=== PATIENT | male | born 2000 | race Caucasian/White ===

== ENCOUNTER 2022-11-22 08:28 | Emergency (ER) | payer SELFPAY ==
[2022-11-22 08:40] VITALS: BP 116/73; PULSE 65; RESP 18; TEMP 36.2; O2SAT 100; BMI 22.5
--- NOTE | 2022-11-22 09:18 | ED.GENADULT ---
HPI - General Adult General Chief complaint: Anxiety Stated complaint: Panic attack Time Seen by Provider: 11/22/22 08:58 History of Present Illness HPI narrative: 22-year-old young man presenting to the emergency department via EMS with complaint of chest pain. 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 This progressed to hyperventilating final Accu is about to pass out. A noted numbness and cramping in numerous locations. He eventually got out of the truck to get some fresh air. EMS noted carpal pedal spasms. Still has a sense of tightness in his low mid chest and upper abdomen. Otherwise better. As we are talking though he suddenly gets an apparent pain in his right sabianist area which he says he will probably be dealing with all day. Did have a ?migraine? last night. Underlying history of some depression anxiety treated for couple of months with probably an SSRI which did help. Unfortunately started to have regular headaches ?migraines?. Took acetaminophen last night for this headache and improved. Would anticipate doing the same today. Does not endorse any particular new stressors. Notes does not celebrate the holidays. Is far from family who live in [facility]. Good relationship there. Dad apparently had some sort of cardiac issue. Then notes that dad may have had a heart attack or stroke when he was 13; details quite unclear. [place] does smoke though has quit before and quit again as of yesterday. Related Data Home Medications Medication Instructions Recorded Confirmed No Known Home Medications 11/22/22 11/22/22 Allergies Allergy/AdvReac Type Severity Reaction Status Date / Time No Known Drug Allergies Allergy Verified 11/22/22 08:39 Review of Systems Status of ROS: Reports: 10 or more systems reviewed and unremarkable except as noted in History and below [facility] Social History Smoking Status: Former smoker service: No Exam Narrative: Exam Narrative: Pleasant. Pretty calm. Well-built/muscled. Tall. In work attire. Mud from work already on clothes and boots. Cranial nerves 2-12 are intact. Moving all extremities without difficulty. Well perfused. Tattoo at the left forearm. Oropharynx a little hyperemic with prominent tonsils. Lungs are clear. Heart is in a regular rhythm and normal rate. No pain to palpation of the chest wall until around the xiphoid area and the mid upper abdominal musculature. Abdomen is flat otherwise soft and nontender. Extremities are without edema. Const: Vital Signs, click to edit/add: Vital Signs - 24 hr 11/22/22 08:40 Temperature 97.2 F L Pulse Rate [Right Pulse Oximeter] 65 Respiratory Rate 18 Blood Pressure [Ri ght Upper Arm] 116/73 Pulse Oximetry 100 Oxygen Delivery Me thod Room Air Documenting provider has reviewed patient's vital signs: yes Course Vital Signs Vital signs: Initial Vital Signs Temperature 97.2 F L 11/22/22 08:40 Temperature Source Temporal Artery Scan 11/22/22 08:40 Pulse Rate 65 11/22/22 08:40 Respiratory Rate 18 11/22/22 08:40 Blood Pressure 116/73 11/22/22 08:40 Blood Pressure Mean 87 11/22/22 08:40 Blood Pressure Position Sitting 11/22/22 08:40 Pulse Oximetry 100 11/22/22 08:40 Oxygen Delivery Method 11/22/22 08:40 Vital Signs Temperature 97.2 F L 11/22/22 08:40 Pulse Rate 65 11/22/22 08:40 Respiratory Rate 18 11/22/22 08:40 Blood Pressure 116/73 11/22/22 08:40 Pulse Oximetry 100 11/22/22 08:40 Oxygen Delivery Method 11/22/22 08:40 Temperature 97.2 F L 11/22/22 08:40 Pulse Rate 65 11/22/22 08:40 Respiratory Rate 18 11/22/22 08:40 Blood Pressure 116/73 11/22/22 08:40 Pulse Oximetry 100 11/22/22 08:40 Oxygen Delivery Method 11/22/22 08:40 Medical Decision Making MDM Narrative Medical decision making narrative: I did offer treatment in the ER for this potentially evolving headache and he declines at this time. Did not otherwise require any interventions. Labs are unremarkable. Chest x-ray looked normal by my read. No infiltrate. No pneumothorax. Normal cardiac silhouette. I did review 12 lead tracing from EMS some baseline irritability heart rate in a normal sinus at 81. Our EKG here reviewed by me shows sinus bradycardia 52. No apparent ischemic changes. No delta waves. Lab Data Labs: Lab Results 12/11/22/22 11/22/22 Range/Units 09:17 09:25 09:25 Hgb 15.0 (13.5-17.5) gm/dL D-Dimer Quant (PE/DVT) (0.00-0.50) ug/ml Sodium 141 (135-149) mmol/L Potassium 3.6 (3.6-5.1) mmol/L Chloride 110 (96-114) mmol/L Carbon Dioxide 24 (20-32) mmol/L BUN 10 (5-24) mg/dL Creatinine 0.8 (0.5-1.5) mg/dL Estimated Creat Clear 161.24 Estimated GFR 128 ml/min Glucose 99 (60-115) mg/dL Calcium 9.3 (8.4-10.6) mg/dL Troponin I (0.01-0.04) ng/mL C-Reactive Protein < 0.5 L (0.5-1.0) mg/dL NT-Pro-B Natriuret Pep pg/mL POC Troponin I 0.00 L (0.01-0.04) ng/ml 11/22/22 11/22/22 Range/Units 09:25 09:25 Hgb (13.5-17.5) gm/dL D-Dimer Quant (PE/DVT) < 0.27 (0.00-0.50) ug/ml Sodium (135-149) mmol/L Potassium (3.6-5.1) mmol/L Chloride (96-114) mmol/L Carbon Dioxide (20-32) mmol/L BUN (5-24) mg/dL Creatinine (0.5-1.5) mg/dL Estimated Creat Clear Estimated GFR ml/min Glucose (60-115) mg/dL Calcium (8.4-10.6) mg/dL Troponin I < 0.01 L (0.01-0.04) ng/mL C-Reactive Protein (0.5-1.0) mg/dL NT-Pro-B Natriuret Pep 38 pg/mL POC Troponin I (0.01-0.04) ng/ml Discharge Plan Discharge Clinical Impression: Headache, Panic attack Patient Disposition: Home w/ Parent or Adult Condition: Improved Additional Instructions: Congratulations again on quitting smoking. I suppose this could add to stress a little bit in the short term. Otherwise do try to stay well-hydrated, get quality and regular sleep, get a little heart pumping exercise in daily...all of these help decrease propensity to headaches, and can control levels of stress. Prescriptions: No Action No Known Home Medications Follow Up/Referrals: Provider,Not a Local [Primary Care Provider] - Stand Alone Forms: [employer] Info Instructions
--- NOTE | 2022-11-22 09:25 | CRLHL7_ITS ---
For Patients: As a result of the Century Cures Act, medical imaging exams and procedure reports are released immediately into your electronic medical record. You may view this report before your referring provider. If you have questions, please contact your health care provider. INDICATION: Chest pain. TECHNIQUE: Chest 1 view. COMPARISON: None FINDINGS: Cardiovascular and mediastinum: Heart size and vasculature are normal in caliber and appearance. Mediastinum is within normal limits. Lungs and pleural space: Lungs are clear. No sign of infiltrate or mass. No sign of pleural effusion. No pneumothorax. Bones and soft tissues: No significant findings. IMPRESSION: Unremarkable chest. Dictated by Mansoor Wilson MD @ 11/22/2022 10:07:58 AM (Electronically Signed)
[2022-11-22 09:49] LABS: Chloride* 110 mmol/L (96-114); Sodium* 141 mmol/L (135-149)
[2022-11-22 09:50] LABS: Potassium* 3.6 mmol/L (3.6-5.1)
[2022-11-22 09:52] LABS: Creatinine* 0.8 mg/dL (0.5-1.5); Est. Creatinine Clearance* 161.24; Estimated Glomerular Filt Rate 128 ml/min
[2022-11-22 09:53] LABS: Blood Urea Nitrogen* 10 mg/dL (5-24); Calcium* 9.3 mg/dL (8.4-10.6); Carbon Dioxide* 24 mmol/L (20-32); Glucose* 99 mg/dL (60-115)
[2022-11-22 09:56] LABS: C Reactive Protein* < 0.5 mg/dL (0.5-1.0); D Dimer Quantitative* < 0.27 ug/ml (0.00-0.50)
[2022-11-22 10:11] LABS: NT Pro B Type NatriureticPept* 38 pg/mL; Troponin I* < 0.01 ng/mL (0.01-0.04)
== END 2022-11-22 10:24 | disposition home or self-care (01) ==
PROVIDERS: Emergency Provider Family Medicine
DX: R51.9 Headache, unspecified (principal); F41.0 Panic disorder [episodic paroxysmal anxiety]
CPT/HCPCS: 36415; 71045; 80048; 83880; 84484; 85018; 85379; 86140; 93005; 99283; 99284

== ENCOUNTER 2022-12-10 17:43 | Emergency (ER) | payer SELFPAY ==
[2022-12-10 18:18] VITALS: BP 130/79; PULSE 80; RESP 18; TEMP 36.6; O2SAT 98; BMI 24.1
--- NOTE | 2022-12-10 19:16 | CRLHL7_ITS ---
For Patients: As a result of the Century Cures Act, medical imaging exams and procedure reports are released immediately into your electronic medical record. You may view this report before your referring provider. If you have questions, please contact your health care provider. INDICATION: Fall, hit head TECHNIQUE: CT head without contrast. COMPARISON: None. FINDINGS: CSF spaces: Within normal limits for age. Brain parenchyma: The yoo-white differentiation is normal. No sign of mass, hemorrhage, or midline shift. Skull base and calvarium: The visualized paranasal sinuses and mastoid air cells demonstrate no acute or significant findings. The visualized orbits are grossly unremarkable. No skull fractures. IMPRESSION: Unremarkable noncontrast head CT. Please note that all CT scans at this facility use dose modulation, iterative reconstruction, and/or weight-based dosing when appropriate to reduce radiation dose to as low as reasonably achievable. Dictated by Jeffrey Brown MD @ 12/10/2022 7:48:07 PM (Electronically Signed)
[2022-12-10 19:46] VITALS: BP 114/79; PULSE 63; RESP 18; O2SAT 99
--- NOTE | 2022-12-10 20:35 | ED.GENADULT ---
HPI - General Adult General Date Seen: 12/10/22 Chief complaint: Head Injury/Pain Stated complaint: Hit Head on Friday Time Seen by Provider: 12/10/22 19:14 Source: patient History of Present Illness HPI narrative: Patient is a 22-year-old male who comes in after head injury 3 nights ago. He says he slipped and fell hitting his head on the ice. He hit the left side of his head just behind his ear and has a little bit of swelling there. He says his buddies said he did lose consciousness briefly. He then had some vomiting after that. He since then, he says he has had a persistent headache that just does not go way even with ibuprofen. He has not had any further vomiting however. He was feeling a little bit better, but went to work today, has a fairly strenuous job and says that his head was really pounding after that. His boss recommended that he be seen for possible concussion. No neck pain. No other injuries or complaints. No blood thinners. Related Data Home Medications Medication Instructions Recorded Confirmed No Known Home Medications 11/22/22 12/10/22 Allergies Allergy/AdvReac Type Severity Reaction Status Date / Time No Known Drug Allergies Allergy Verified 12/10/22 18:18 Review of Systems Status of ROS: Reports: 10 or more systems reviewed and unremarkable except as noted in History and below [facility] Social History Smoking Status: Current every day smoker What tobacco products do you use: cigarettes How often do you have a drink containing alcohol: 2-3 times a week How many standard drinks containing alcohol do you have on a typical day: 3 or 4 How often do you have six or more drinks on one occasion: Less than monthly AUDIT-C Alcohol total score: 5 Non-prescribed substance use: denies use service: No Exam Narrative: Exam Narrative: Vital signs as noted above. In general, an alert, well-appearing patient. Head: Normocephalic. Behind the left ear there is a small hematoma, small abrasion. Eyes: Pupils are equal reactive. Extraocular movements are full. Conjunctivae are normal. ENT: Mucous membranes are moist. Throat is normal. TMs normal bilaterally. The left pinna is slightly abraded. No evidence of infection. No significant hematoma. Neck: Supple without lymphadenopathy. Nontender to palpation. Heart: Regular rate and rhythm. No murmur or rub. Lungs: Clear bilaterally. No increased work of breathing, crackles or wheezes. Extremities: Well perfused. No edema. No calf tenderness. Pulses intact. Neurologic: Patient is alert and oriented to person and place. Speech is fluent. Face is symmetric. Moves all extremities equally. Affect: Normal. Skin: Warm and dry. Well perfused. Const: Vital Signs, click to edit/add: Vital Signs - 24 hr 12/10/22 18:18 12/10/22 19:46 Temperature 98 F Pulse Rate [Pulse Oximeter] 80 63 Respiratory Rate 18 18 Blood Pressure [Le ft Upper Arm] 130/79 114/79 Pulse Oximetry 98 99 Oxygen Delivery Me thod Room Air Documenting provider has reviewed patient's vital signs: yes Course Course Hospital Course: Given the history of loss of consciousness, vomiting, and ongoing headache I elected to do a head CT. By my review this does not show any evidence of intracranial hemorrhage. The final radiology report is likewise negative. No evidence of skull fracture. I have discussed concussion with him, what to expect. Symptoms may persist for days to weeks. I did given tomorrow off of work, he thinks he will be able to return after that. Ibuprofen and Tylenol as needed for headache. He declined Zofran. If symptoms are persistent past the next couple of weeks, would recommend visit with primary care for recheck. Vital Signs Vital signs: Initial Vital Signs Temperature 98 F 12/10/22 18:18 Temperature Source Temporal Artery Scan 12/10/22 18:18 Pulse Rate 80 12/10/22 18:18 Respiratory Rate 18 12/10/22 18:18 Blood Pressure 130/79 12/10/22 18:18 Blood Pressure Mean 96 12/10/22 18:18 Pulse Oximetry 98 12/10/22 18:18 Vital Signs Temperature 98 F 12/10/22 18:18 Pulse Rate 80 12/10/22 18:18 Respiratory Rate 18 12/10/22 18:18 Blood Pressure 130/79 12/10/22 18:18 Pulse Oximetry 98 12/10/22 18:18 Temperature 98 F 12/10/22 18:18 Pulse Rate 63 12/10/22 19:46 Respiratory Rate 18 12/10/22 19:46 Blood Pressure 114/79 12/10/22 19:46 Pulse Oximetry 99 12/10/22 19:46 Oxygen Delivery Method 12/10/22 19:46 Discharge Plan Discharge Clinical Impression: Concussion with loss of consciousness Patient Disposition: Home, Self-Care Condition: Stable Instructions: Concussion (ED) Additional Instructions: Ibuprofen 400 mg plus Tylenol 1000 mg 3 times daily with food as needed for headache. Symptoms may persist for days or weeks, if you are not improving over the next 2 weeks, follow-up with primary care for recheck. [phone] to schedule. Light activity this week, advanced to more strenuous activities as symptoms allow. Prescriptions: No Action No Known Home Medications Follow Up/Referrals: Provider,Not a Local [Primary Care Provider] - Stand Alone Forms: [employer] Info Instructions
== END 2022-12-10 20:04 | disposition home or self-care (01) ==
PROVIDERS: Emergency Provider Emergency Medicine
DX: S06.0X1A Concussion with loss of consciousness of 30 minutes or less, initial encounter (principal); W00.9XXA Unspecified fall due to ice and snow, initial encounter
CPT/HCPCS: 70450; 99283; 99284